=== PATIENT | male | born 1985 | race Caucasian/White ===

== ENCOUNTER → 2023-02-14 07:55 | Outpatient (CLI) | payer OTHER, SELFPAY ==
--- NOTE | ~2023-02-14 | CT_ITS ---
EXAMINATION: CT sinus wo con DATE: 02/14/2023 08:32 INDICATION: Chronic sinusitis. Deviated nasal septum. TECHNIQUE: Computed tomography (CT) of the paranasal sinuses was performed without intravenous contra st. The dose-length product was 271.16 mGy-cm. Automated exposure control and iterative reconstructio n technique were employed. COMPARISON: None FINDINGS: There is mucosal thickening of the maxillary, ethmoid sinuses. No air-fluid levels. No sign ificant mucoperiosteal reaction. Left ostiomeatal unit is patent. Right ostiomeatal unit is occluded by soft tissue. There is rightward nasal septal deviation. There is a right-sided jaren bullosa. IMPRESSION: 1. Mild sinus disease with rightward nasal septal deviation. Reviewed, dictated and finalized at location L.
== END ==
PROVIDERS: PCP Otolaryngology; Visit Provider Otolaryngology
DX: J32.9 Chronic sinusitis, unspecified (principal); J34.2 Deviated nasal septum; J34.3 Hypertrophy of nasal turbinates; J34.89 Other specified disorders of nose and nasal sinuses; R09.81 Nasal congestion; R44.8 Other symptoms and signs involving general sensations and perceptions
CPT/HCPCS: 70486

== ENCOUNTER 2023-03-21 01:08 | Day surgery (SDC) | payer OTHER, SELFPAY ==
[2023-03-14 12:40] VITALS: BMI 30.5
--- NOTE | 2023-03-14 12:46 | PC.NURSE ---
Report to the Outpatient Waiting Room, entrance under the green pavilion located off [facility], at time 1130 on date 03/21/23. Planned Procedure Time: 1330. Time changes happen often and if your time is changed the preop area will call you the afternoon before. - You and your visitor will be asked to self-screen and do not enter if you have any COVID symptoms. - A mask is optional within the hospital at this time. Patients may have clear liquids (water, carbonated beverages, clear teas, apple juice) until 3 hours prior to surgery with a maximum of 20 ounces. - No food from midnight until time of surgery Take the following medications with a SIP of water the morning of surgery: NONE DO NOT STOP ANY OF YOUR OTHER PRESCRIPTION MEDICATIONS PRIOR TO SURGERY EXCEPT THE FOLLOWING Medications to discontinue per physician: N/A Date to take last dose: N/A Please no make-up, nail tajik, hairspray, perfume, deodorant, or body powder the day of surgery. No jewelry (including any body piercings) or valuables the day of surgery, leave them at home. Please take a shower or bath the night before, or the morning of, surgery with an antibacterial soap. Wear comfortable, loose fitting clothing. - Jewelry must be removed prior to entering the operating room. Rings and piercings that are not removed may be cut off. - The hospital will not accept responsibility for valuables. - Please leave all valuables, including medications, at home the day of surgery. If you are going home after surgery, a licensed regional flatbed truck driver must drive you home. - NO public transportation without another adult if you receive anesthesia. - We recommend that an adult stay with you for 24 hours following discharge. - We also recommend that you do not drive, make important decision, drink alcoholic beverages, or take any drugs that were not prescribed by your health care provider for at least 24 hours after your discharge time. Follow any additional instructions given to you from your surgeon. If you or anyone in your household have experienced Covid symptoms in the past week, please notify your surgeon or the nurse liaison at the phone number below for possible testing. Telephone instructions given to PT - EDEL ODONNELL and asked if any additional questions and then verbalized understanding. Patient advised to call surgeon office or pre surgery nurse liaison [phone] if any additional questions.
--- NOTE | 2023-03-20 10:32 | P.PNAN_ITS ---
Anes - Initial Pre Proc Eval Procedure: Operation Date: 03/21/23 11:30 Proposed Procedures p Image Guided Bilateral Inferior Turbinectomy with Outfracture, Bilateral Maxillary Antrostomy without Tissue Removal, Bilateral Total Ethmoidectomy, Bilateral Frontal Sinusotomy, - Austin Mandujano MD s Septoplasty - Austin Mandujano MD Date/Time: 03/20/23 10:32 Surgeon: Austin Mandujano MD Pre Op Diagnosis: chronic sinusitis Patient Data Age: 37 Gender: M Height: 1.77 m Weight: 95.25 kg Allergies Allergy/AdvReac Type Severity Reaction Status Date / Time SEASONAL ALLERGENS Allergy Congested Uncoded 03/21/23 10:08 Home Medications Medication Instructions Recorded Confirmed Type cetirizine 10 mg capsule (Zyrtec) 10 mg PO DAILY PRN Allergy Symptoms 11/29/22 03/14/23 History azelastine 137 mcg (0.1 %) nasal 1 spray intranasal Q12H #30 mL 01/23/23 03/14/23 Rx spray aerosol fluticasone propionate 50 2 spray intranasal BID 01/23/23 03/14/23 History mcg/actuation nasal spray,suspension (Flonase Allergy Relief) Patient hx anesthesia problems: none Family hx anesthesia problems: none Results Review: All pre-operative results and documents have been reviewed as part of the pre- operative evaluation. [facility]LY [facility], [facility] Past Medical History Medical History (Updated 03/20/23 @ 10:33 by Nir Rod DO) ADHD Migraine Family History Family History Mother Migraine Social History Social History (Updated 01/23/23 @ 09:10 by WOODROW Mcclelland) Years smoked: 8 Smoking status: Former smoker Tobacco type: cigarettes and e-cigarettes/vaping Additional smoking assessment comments: QUIT CIGARETTES 15 YRS AGO, STOPPED VAPING 3 MONTHS AGO Alcohol intake: never Alcohol use details: rarely Substance use: never Substance use type: does not use Lack of Transportation: No Lack of Food: Never True Current Housing: I Have Housing Concerned About Future Housing: No Difficulty Paying Gas/Electric Bills: No Difficulty Paying for Meds: No Currently Unemployed: No Education: High School Diploma/GED Difficulty w/ Childcare or Family Care: No Living arrangements: with family Occupation/Education: occupation Gender identity (if verbalized by the patient): Male Spiritual care concerns: No Anes - Eval Final PreProcedure Day of Procedure 03/20/23 10:32 Patient weight: obese Heart: regular rate and rhythm Lungs: clear to auscultation Airway: Mallampati scale class II Neurological: alert and oriented Last oral intake: >/= 8 hours ASA classification: II Emergent: no Anesthetic plan: proceed Anesthesia type and monitoring: general ETT and standard monitoring Results Review: All pre-operative results and documents have been reviewed as part of the pre- operative evaluation. Informed Consent: The patient's anesthetic plan and its attendant risks and benefits were discussed with the patient/family/POA. Questions were solicited and answers provided to the satisfaction of the patient/family/POA.
--- NOTE | 2023-03-20 13:23 | PM.IMHP ---
H&P: HPI History of Present Illness Date/Time: 03/20/23 13:23 Chief Complaint: Chronic sinusitis facial pressure facial pain drainage nasal obstruction nasal congestion septal deviation turbinate hypertrophy Narrative: planned procedure Review of Systems Review of Systems: All systems reviewed & are unremarkable except as noted in HPI and below PMFSH Past Medical History Medical History (Updated 03/20/23 @ 10:33 by Nir Rod DO) ADHD Migraine Family History Family History Mother Migraine Social History Social History (Updated 01/23/23 @ 09:10 by WOODROW Mcclelland) Years smoked: 8 Smoking status: Former smoker Tobacco type: cigarettes and e-cigarettes/vaping Additional smoking assessment comments: QUIT CIGARETTES 15 YRS AGO, STOPPED VAPING 3 MONTHS AGO Alcohol intake: never Alcohol use details: rarely Substance use: never Substance use type: does not use Lack of Transportation: No Lack of Food: Never True Current Housing: I Have Housing Concerned About Future Housing: No Difficulty Paying Gas/Electric Bills: No Difficulty Paying for Meds: No Currently Unemployed: No Education: High School Diploma/GED Difficulty w/ Childcare or Family Care: No Living arrangements: with family Occupation/Education: occupation Gender identity (if verbalized by the patient): Male Spiritual care concerns: No Meds Home Medications and Allergies Home Medications Medication Instructions Recorded Confirmed Type cetirizine 10 mg capsule (Zyrtec) 10 mg PO DAILY PRN Allergy Symptoms 11/29/22 03/14/23 History azelastine 137 mcg (0.1 %) nasal 1 spray intranasal Q12H #30 mL 01/23/23 03/14/23 Rx spray aerosol fluticasone propionate 50 2 spray intranasal BID 01/23/23 03/14/23 History mcg/actuation nasal spray,suspension (Flonase Allergy Relief) Allergies Allergy/AdvReac Type Severity Reaction Status Date / Time SEASONAL ALLERGENS Allergy Congested Uncoded 03/14/23 12:39 Exam Narrative: septal deviation turbinate hypertrophy Assessment and Plan Assessment and plan (1) Chronic sinusitis: Code(s): J32.9 - Chronic sinusitis, unspecified Status: Acute Assessment and Plan: plan OR image guided bilateral maxillary antrostomies total ethmoidectomies frontal sinusotomies, may not charge or perform frontal sinusotomies, appears as though it is just removing the cap of the agger Nasi, bilateral inferior turbinate reduction with outfracture and endoscopic assisted septoplasty. Risks were discussed including bleeding infection damage to surrounding structures need for further procedures septal perforation CSF leak brain brain damage change in vision blindness damage to any structure above the clavicles by myself damage to any structure in the induction and remains of anesthesia including vocal cord paralysis. Inherent risks of narcotic use time off work time off school. Patient voiced understanding and agreed. (2) Facial pressure: Code(s): R44.8 - Other symptoms and signs involving general sensations and perceptions Status: Acute (3) Hypertrophy of both inferior nasal turbinates: Code(s): J34.3 - Hypertrophy of nasal turbinates Status: Acute (4) Nasal septal deviation: Code(s): J34.2 - Deviated nasal septum Status: Acute (5) Nasal congestion: Code(s): R09.81 - Nasal congestion Status: Acute (6) Nasal obstruction: Code(s): J34.89 - Other specified disorders of nose and nasal sinuses Status: Acute
[2023-03-21] VITALS (10 sets, daily range): BP systolic 117–146; BP diastolic 85–97; PULSE 65–83; RESP 9–18; TEMP 36.2–36.5; O2SAT 93–100
--- NOTE | 2023-03-21 07:20 | WPDHPUPDATE1 ---
History and Physical Update Update Date/Time: 03/21/23 07:20 History and Physical has been reviewed, including an updated exam of the patient. There are NO changes in the patient's condition. Risks, benefits, and alternatives have been discussed and questions answered. Patient agrees to proceed with procedure.
[2023-03-21] MEDS: ACETAMINOPHEN 500 MG TABLET 1000 MG PO (10:20)
[2023-03-21] MEDS: LACTATED RINGERS 1,000 ML 30 ML IV CONT ×2 (10:30→13:48)
[2023-03-21] MEDS: ceFAZolin 2 GM/D5W 50 ML 2 GM/50 ML BAG IVPB (11:05)
[2023-03-21] MEDS: OXYMETAZOLINE HCL 0.05% NAS 15 ML BTL (*BKC) 1 SPRAY NASAL (11:17)
[2023-03-21] MEDS: MUPIROCIN 2% OINT 22 GM TUBE 1 APPLIC EACH NARE (13:18)
[2023-03-21] MEDS: LIDO 1%/EPINEPHRINE 1:100,000 50 ML VIAL 20 ML INFILTRATE (13:19)
--- NOTE | 2023-03-21 14:07 | P.OP_ITS ---
Procedure Note - Detailed Date of Procedure 03/21/23 Pre-op Diagnosis chronic sinusitisSeptal deviation, turbinate hypertrophy, nasal obstruction, nasal congestion Post-op Diagnosis Same Procedure Performed endoscopic image guided bilateral maxillary antrostomies total ethmoidectomies frontal sinusotomies, endoscopic assisted septoplasty, inferior turbinate submucosal reduction with outfracture Surgeon Austin Mandujano MD Anesthesia General Indications see above Findings global right septal deviation is a challenge at the end reset the caudal septum but was reset successfully with scoring an anterior based splint placement. Turbinates well reduced all the sinuses had disease tissue in them it actually looked worse in-vitro than it did on the CT. Description of Procedure Patient identified consent verified. Patient brought to the operating room. Time-out performed. General anesthesia induced endotracheal tube secured airway. Patient prepped draped position procedure confirmed 2nd time-out performed. Image guidance initiated and confirmed. Afrin-soaked pledgets placed for 5 minutes then removed. 0 degree scope utilized total of 13 cc 1% lidocaine 1 100,000 parts epinephrine injected in the inferior turbinates as well as the nasal septum bilaterally. [place] incision made left-sided left nasal septal flap elevated no perforations elevated with 7 Lithuanian suction. Osteotome utilized to cross over right nasal septal flap elevated no, no perforations. Deviated septum removed the 15 blade osteotome Bradford forceps Josse Jones forceps. Chandan incision closed with 3 interrupted 5 0 fast gut sutures. Turbinates reduced in the submucosal plane using microdebrider with turbinate blade. They were then outfractured [place] elevator. Molt tips cauterized puncture sites cauterized as well. Maxillary antrostomies performed with image guidance double ball tip probe straight through cut down biting stump burger and backbiter. As well as microdebrider image guided. Ethmoidectomies performed with [place] and microdebrider and straight through cut. Anterior ethmoidal artery was not violated orbit was not violated skull base was not violated. Frontal sinusotomies performed with image guidance 70 degree image guided suction 70 degree scope Mast punch sorry Hosemann punch and Cobra. Great care was taken to not injure the skull base or posterior table of the sinus. At the end of the procedure the bilateral nasal passages were copiously irrigated with sterile saline there suction the posterior choana. Nova pack was placed bilaterally stenting the middle turbinates medially. Cummings splints were trimmed right with airway left without further push the septum to the left. This was sutured with a mattress suture was a 3-0 nylon suture. Patient tolerated the procedure well total blood loss 75 cc. I performed all dictated portions of procedure. Care the patient given Anesthesiology patient taken to PACU no immediate complications. Estimated Blood Loss 75 Drains No Packing Yes (Novapak) Pathology None sent Complications No immediate complications Condition Stable Disposition PACU [facility] Billing Surgery - Charge Forward: Surgery Billing
[2023-03-21] MEDS: oxyCODONE HCL (*CRX) 5 MG TAB IR PO (15:16)
--- NOTE | 2023-03-21 17:24 | SUR.PHASEII ---
1600: Patient met criteria for discharge. Vitals are stable. Patient is unhooked from the monitors and getting dressed then waiting for ride home.
== END 2023-03-21 16:22 | disposition home or self-care (01) ==
PROVIDERS: PCP Family Medicine Adolescent Medicine; Visit Provider Otolaryngology
PROC: (CPT 31256; principal; 2023-03-21 11:30)
PROC: (CPT 30520; 2023-03-21 11:30)
DX: J32.9 Chronic sinusitis, unspecified (principal); J34.3 Hypertrophy of nasal turbinates; J34.2 Deviated nasal septum; J34.89 Other specified disorders of nose and nasal sinuses; R09.81 Nasal congestion; R51.9 Headache, unspecified; Z87.891 Personal history of nicotine dependence; E66.9 Obesity, unspecified; Z68.31 Body mass index [BMI] 31.0-31.9, adult
CPT/HCPCS: 31256; 31253; 61782; 30520; 30140; A9270; J0330; J0690; J1100; J2250; J2405; J2704; J3010; J7120

== ENCOUNTER → 2023-09-14 14:58 | Outpatient (CLI) | payer OTHER, SELFPAY ==
--- NOTE | ~2023-09-14 | CT_ITS ---
EXAMINATION: CT sinus wo con DATE: 09/14/2023 15:11 INDICATION: Chronic sinusitis. TECHNIQUE: Computed tomography (CT) of the paranasal sinuses was performed without intravenous contra st. Iterative reconstruction technique was employed. The dose-length product was 280.01 mGy-cm. COMPARISON: CT 02/14/2023 FINDINGS: There is mild mucosal thickening in the frontal sinuses, ethmoid sinuses, and right maxilla ry sinus. There is moderate mucosal thickening in left maxillary sinus. The sphenoid sinuses are elier r. There are changes of uncinectomies and ethmoidectomies. There is mild rightward deviation of the n gaby septum. The ostiomeatal units are patent. IMPRESSION: 1. Mucosal thickening in the paranasal sinuses. Reviewed, dictated and finalized at location E. CE MANAGER
== END ==
PROVIDERS: PCP Otolaryngology; Visit Provider Otolaryngology
DX: B49 Unspecified mycosis (principal)
CPT/HCPCS: 70486

== ENCOUNTER 2023-11-24 00:20 | Day surgery (SDC) | payer OTHER, SELFPAY ==
[2023-11-16 11:04] VITALS: BMI 29.4
--- NOTE | 2023-11-16 11:06 | PC.NURSE ---
Report to the Outpatient Waiting Room, entrance under the green pavilion located off [facility], at time 0900 on date 11/24/23. Planned Procedure Time: 1100. Time changes happen often and if your time is changed the preop area will call you the afternoon before. - You and your visitor will be asked to self-screen and do not enter if you have any COVID symptoms. - A mask is optional within the hospital at this time. Patients may have clear liquids (water, carbonated beverages, clear teas, apple juice) until 3 hours prior to surgery with a maximum of 20 ounces. - No food from midnight until time of surgery Take the following medications with a SIP of water the morning of surgery: NONE DO NOT STOP ANY OF YOUR OTHER PRESCRIPTION MEDICATIONS PRIOR TO SURGERY ?EXCEPT THE FOLLOWING Medications to discontinue per physician: N/A Date to take last dose: N/A Please no make-up, nail urdu, hairspray, perfume, deodorant, or body powder the day of surgery. No jewelry (including any body piercings) or valuables the day of surgery, leave them at home. Please take a shower or bath the night before, or the morning of, surgery with an antibacterial soap. Wear comfortable, loose fitting clothing. - Jewelry must be removed prior to entering the operating room. Rings and piercings that are not removed may be cut off. - The hospital will not accept responsibility for valuables. - Please leave all valuables, including medications, at home the day of surgery. If you are going home after surgery, a licensed crew truck driver must drive you home. - NO public transportation without another adult if you receive anesthesia. - We recommend that an adult stay with you for 24 hours following discharge. - We also recommend that you do not drive, make important decision, drink alcoholic beverages, or take any drugs that were not prescribed by your health care provider for at least 24 hours after your discharge time. Follow any additional instructions given to you from your surgeon. If you or anyone in your household have experienced Covid symptoms in the past week, please notify your surgeon or the nurse liaison at the phone number below for possible testing. Telephone instructions given to PT - EDEL ODONNELL and asked if any additional questions and then verbalized understanding. Patient advised to call surgeon office or pre surgery nurse liaison [phone] if any additional questions.
--- NOTE | 2023-11-23 10:27 | PM.IMHP ---
H&P: HPI History of Present Illness Date/Time: 11/23/23 10:27 Chief Complaint: Chronic sinusitis fungal sinusitis Narrative: planned procedure Review of Systems Review of Systems: All systems reviewed & are unremarkable except as noted in HPI and below PMFSH Past Medical History Medical History ADHD Migraine Family History Family History Mother Migraine Social History Social History Years smoked: 8 Smoking status: Former smoker Tobacco type: cigarettes and e-cigarettes/vaping Additional smoking assessment comments: QUIT CIGARETTES , QUIT VAPING DEC 2022 Alcohol intake: never Alcohol use details: rarely Substance use: never Substance use type: does not use Lack of Transportation: No Lack of Food: Never True Current Housing: I Have Housing Concerned About Future Housing: No Difficulty Paying Gas/Electric Bills: No Difficulty Paying for Meds: No Currently Unemployed: No Education: High School Diploma/GED Difficulty w/ Childcare or Family Care: No Living arrangements: with family Occupation/Education: occupation Gender identity (if verbalized by the patient): Male Spiritual care concerns: No Meds Home Medications and Allergies Home Medications Medication Instructions Recorded Confirmed Type cetirizine 10 mg capsule (Zyrtec) 10 mg PO DAILY PRN Allergy Symptoms 11/29/22 11/20/23 History azelastine 137 mcg (0.1 %) nasal 1 spray intranasal Q12H #30 mL 08/25/23 11/20/23 Rx spray aerosol fluticasone propionate 50 2 spray intranasal BID 09/04/23 11/20/23 History mcg/actuation nasal spray,suspension (Flonase Allergy Relief) Allergies Allergy/AdvReac Type Severity Reaction Status Date / Time SEASONAL ALLERGENS Allergy Congested Uncoded 11/20/23 14:58 Exam Narrative: fungal debris left max chronic sinus Assessment and Plan Assessment and plan (1) Fungal sinusitis: Code(s): B49 - Unspecified mycosis; J32.9 - Chronic sinusitis, unspecified Status: Acute Assessment and Plan: plan or image guided Left-sided maxillary antrostomy endoscopic with tissue removal. Bilateral posterior ethmoidectomies. Patient has 1 air cell on each side. Risks discussed including bleeding infection CSF leak brain brain damage total blindness change in vision need for further procedures failure to resolve symptoms. Need for time off work time off school damage to any structure of the clavicles by myself damage to any structure in the induction and maintenance of anesthesia. Patient voiced understanding of these risks and agreed. (2) Chronic sinusitis: Code(s): J32.9 - Chronic sinusitis, unspecified Status: Acute
--- NOTE | 2023-11-23 14:05 | P.PNAN_ITS ---
Anes - Initial Pre Proc Eval Procedure: Operation Date: 11/24/23 12:00 Proposed Procedures p Endoscopic Image Guided Left Sided Revision Maxillary Antrostomy with Tissue Removal, Bilateral Posterior Ethmoidectomy - Austin Mandujano MD Date/Time: 11/23/23 14:05 Surgeon: Austin Mandujano MD Pre Op Diagnosis: Chr Sinusitis, Fungal Sinusitis Patient Data Age: 38 Gender: M Height: 1.78 m Weight: 93 kg Allergies Allergy/AdvReac Type Severity Reaction Status Date / Time SEASONAL ALLERGENS Allergy Congested Uncoded 11/24/23 10:33 Home Medications Medication Instructions Recorded Confirmed Type cetirizine 10 mg capsule (Zyrtec) 10 mg PO DAILY PRN Allergy Symptoms 11/29/22 11/24/23 History azelastine 137 mcg (0.1 %) nasal 1 spray intranasal Q12H #30 mL 08/25/23 11/24/23 Rx spray aerosol fluticasone propionate 50 2 spray intranasal BID 09/04/23 11/24/23 History mcg/actuation nasal spray,suspension (Flonase Allergy Relief) Patient hx anesthesia problems: none Family hx anesthesia problems: none Results Review: All pre-operative results and documents have been reviewed as part of the pre- operative evaluation. [facility] Past Medical History Medical History ADHD Migraine Surgical History Surgical History (Updated 11/23/23 @ 14:06 by Nir Rod DO) History of tonsillectomy Family History Family History Mother Migraine Social History Social History Years smoked: 8 Smoking status: Former smoker Tobacco type: cigarettes and e-cigarettes/vaping Additional smoking assessment comments: QUIT CIGARETTES ~2004, QUIT VAPING DEC 2022 Alcohol intake: never Alcohol use details: rarely Substance use: never Substance use type: does not use Lack of Transportation: No Lack of Food: Never True Current Housing: I Have Housing Concerned About Future Housing: No Difficulty Paying Gas/Electric Bills: No Difficulty Paying for Meds: No Currently Unemployed: No Education: High School Diploma/GED Difficulty w/ Childcare or Family Care: No Living arrangements: with family Occupation/Education: occupation Gender identity (if verbalized by the patient): Male Spiritual care concerns: No Anes - Eval Final PreProcedure Day of Procedure 11/23/23 14:05 Patient weight: overweight Heart: regular rate and rhythm Lungs: clear to auscultation Airway: Mallampati scale class II Neurological: alert and oriented Last oral intake: >/= 8 hours ASA classification: II Emergent: no Anesthetic plan: proceed Anesthesia type and monitoring: general ETT and standard monitoring Results Review: All pre-operative results and documents have been reviewed as part of the pre-operative evaluation. Informed Consent: The patient's anesthetic plan and its attendant risks and benefits were discussed with the patient/family/POA. Questions were solicited and answers provided to the satisfaction of the patient/family/POA.
--- NOTE | 2023-11-24 07:21 | WPDHPUPDATE1 ---
History and Physical Update Update Date/Time: 11/24/23 07:21 History and Physical has been reviewed, including an updated exam of the patient. There are NO changes in the patient's condition. Risks, benefits, and alternatives have been discussed and questions answered. Patient agrees to proceed with procedure.
[2023-11-24] MEDS: LACTATED RINGERS 1,000 ML 30 ML IV CONT ×2 (10:25→12:32)
[2023-11-24 10:35] VITALS: BP 118/82; PULSE 77; RESP 16; TEMP 36.4; O2SAT 99
[2023-11-24] MEDS: ACETAMINOPHEN 500 MG TABLET 1000 MG PO (10:35)
[2023-11-24] MEDS: ceFAZolin 2 GM/D5W 50 ML 2 GM/50 ML BAG IVPB (10:58)
[2023-11-24] MEDS: OXYMETAZOLINE HCL 0.05% NAS 15 ML BTL (*BKC) 1 SPRAY NASAL (11:18)
--- NOTE | 2023-11-24 12:10 | SUR.OPER ---
Cultures sent with BONITA Ramirez and received in pathology by
[2023-11-24 12:32] VITALS: BP 133/88; PULSE 77; RESP 16; TEMP 36.1; O2SAT 99
[2023-11-24 12:45] VITALS: BP 120/91; PULSE 65; RESP 16; O2SAT 100
--- NOTE | 2023-11-24 12:52 | P.OP_ITS ---
Procedure Note - Detailed Date of Procedure 11/24/23 Pre-op Diagnosis Chr Sinusitis, Fungal Sinusitis Post-op Diagnosis Same Procedure Performed Image guided endoscopic right-sided posterior ethmoidectomy left-sided revision endoscopic image guided maxillary antrostomy with tissue removal. Surgeon Austin Mandujano MD Anesthesia General Indications See above Findings right loculated cell lung look a polypoid edematous tissue in it. Left-sided maxillary sinus creeping up the medial wall the orbit completely edematous infected tissue copious amounts of purulence with malodorous thick what appeared to be fungal debris. This was cultured for both fungus and aerobic as well as anaerobic bacteria. Copiously irrigated out with about 1000 cc of tobramycin infused saline irrigation should be an odd pseudomonal infection. Minimal bleeding 15 cc of blood loss. Description of Procedure Patient identified consent verified preop. Patient brought to the operating. Time-out performed. General anesthesia induced endotracheal tube secured airway. Patient prepped draped position procedure confirmed 2nd time-out performed. Image guidance initiated confirmed. Afrin-soaked pledgets placed for 5 minutes then removed. 0 degree scope utilized right-sided posterior ethmoid cell located with image guidance Kerrison sphenoid punch utilized opened up Afrin-soaked pledgets placed for 5 minutes then removed no further bleeding. Left-sided posterior ethmoid was actually open. Maxillary antrostomy widened with microdebrider back bite through cut the wound was then irrigated with a 1000 cc of sterile normal saline all the debris and purulence was cultured and sent for both bacterial and fungal cultures. Afrin-soaked pledgets placed for 5 minutes then removed no further bleeding. Care the patient given An esthesiology. I performed all dictated portions of procedure. No immediate complications. Patient taken to PACU. Estimated Blood Loss 15 Drains No Packing No Pathology None sent Complications No immediate complications Condition Stable Disposition PACU [facility] Billing Surgery - Charge Forward: Surgery Billing
[2023-11-24 13:00] VITALS: BP 125/89; PULSE 82; RESP 18; O2SAT 100
[2023-11-24 13:13] VITALS: BP 123/88; PULSE 78; RESP 19; O2SAT 98
[2023-11-24 13:20] VITALS: BP 108/57; PULSE 72; RESP 16
[2023-11-24] MEDS: oxyCODONE HCL (*CRX) 5 MG TAB IR PO (13:32)
== END 2023-11-24 14:00 | disposition home or self-care (01) ==
PROVIDERS: Visit Provider Otolaryngology
PROC: (CPT 31255; principal; 2023-11-24 12:00)
DX: J32.0 Chronic maxillary sinusitis (principal); B49 Unspecified mycosis; Z87.891 Personal history of nicotine dependence
CPT/HCPCS: 31255; 31267; 61782; 87070; 87075; 87077; 87102; 87186; 87205; 87206; A9270; J0330; J0690; J1100; J2250; J2405; J2704; J3010; J7050; J7120

== ENCOUNTER 2024-04-13 07:33 | Outpatient (CLI) | payer OTHER, SELFPAY ==
--- NOTE | ~2024-04-13 | MR_ITS ---
EXAMINATION: MR brain/brain stem wo con DATE: 04/13/2024 19:10 CDT INDICATION: Right-sided headaches with intermittent vision loss. TECHNIQUE: Magnetic resonance imaging (MRI) of the brain and brainstem was performed without intraven ous contrast. Sequences included sagittal and axial T1-weighted SE, axial diffusion-weighted FS SE, a xial T2*-weighted GRE, axial T2-weighted FLAIR Propeller, and axial T2-weighted Propeller. Apparent d iffusion coefficient (ADC) maps were created. COMPARISON: CT sinuses dated 09/14/2023 FINDINGS: The brain volume and ventricular system are within normal limits. The brain parenchymal si gnal intensity pattern and ventura/white matter is normal and there is no evidence of hemorrhage, space occupying masses or infarctions. The flow signal voids of the major arterial structures about the [employer] and within the rl r dural venous sinuses appear grossly unremarkable and patent. The seventh and eighth cranial nerve complexes are normal. The mid sagittal image demonstrates a normal craniovertebral junction and ana us callosum. There is moderate mucosal thickening of the maxillary and ethmoid sinuses. Orbits are sy mmetric without disconjugate gaze. IMPRESSION: 1: No acute intracranial abnormality. 2:. Sinusitis. Reviewed, dictated and finalized at location B.
== END 2024-04-13 07:34 ==
LOC: MICIMG 07:34
PROVIDERS: PCP Family Medicine Adolescent Medicine; Visit Provider Nurse Practitioner Family
DX: G43.909 Migraine, unspecified, not intractable, without status migrainosus (principal); H54.61 Unqualified visual loss, right eye, normal vision left eye
CPT/HCPCS: 70551